=== PATIENT | female | born 1975 | race Caucasian/White ===

== ENCOUNTER 2023-01-09 12:53 | Emergency (ER) | payer OTHER, SELFPAY ==
[2023-01-09] VITALS (7 sets, daily range): BP systolic 111–139; BP diastolic 78–99; PULSE 78–104; RESP 14–17; TEMP 36.4; O2SAT 97–100
--- NOTE | 2023-01-09 13:04 | ECG_ITS ---
Measurements Intervals [place] Rate: 86 P: 52 DC: 146 QRS: 38 QRSD: 110 T: 32 QT: 347 QTc: 416 Interpretive Statements SINUS RHYTHM BASELINE ARTIFACT- II, III, AVF, V5 NORMAL ECG NO PREVIOUS ECG AVAILABLE FOR COMPARISON Electronically Signed On 01-09-2023 13:25:31 CDT by Hamlet Cash D.O.
--- NOTE | 2023-01-09 13:08 | ED.CHESTPAIN ---
HPI - Chest Pain General Chief Complaint: Chest Pain Stated Complaint: chest pain, arm numbness Time Seen by Provider: 01/09/23 13:00 Source: patient Mode of arrival: ambulatory Limitations: no limitations History of Present Illness HPI narrative: 47 year old female presents to the Emergency Department complaining of feeling chest tightness and like she cannot take a deep breath. Having shortness of breath and numbness and tingling in all extremities. Has some chronic paresthesias to left arm and leg. Denies fever, cough, congestion, vomiting, diarrhea. MD complaint: chest pain (tightness) Onset (ago): minute(s) Onset: during rest Pain radiation: none Quality: tightness (like cannot take a deep breath) Relieving factors: nothing Exacerbating factors: nothing Risk Factors Coronary artery disease risk factors: none Thoracic aortic dissection risk factors: none Related Data On Oral Contraceptives: No Allergies Allergy/AdvReac Type Severity Reaction Status Date / Time No Known Allergies Allergy Verified 01/09/23 13:17 Review of Systems Review of Systems: All systems reviewed & are unremarkable except as noted in HPI and below Constitutional: Constitutional: Reports as per HPI Eyes: Eyes: Reports as per HPI ENT: Reports system reviewed and no additional complaints, except as documented Cardiovascular: Cardiovascular: Reports as per HPI and Reports chest pain (tightness like cannot take a deep breath) Respiratory: Respiratory: Reports as per HPI and Reports dyspnea Gastrointestinal: Gastrointestinal: Reports as per HPI, Denies diarrhea, Denies nausea and Denies vomiting Genitourinary: Genitourinary: Reports no additional female genitourinary complaints Musculoskeletal: Musculoskeletal: Reports no additional musculoskeletal complaints Integumentary/Breasts: Skin/Breast: Reports system reviewed and no additional complaints, except as docu Neurologic: Reports system reviewed and no additional complaints, except as documented and Reports numbness (all extremities) Psychiatric: Psychiatric: Reports anxiety Exam Const: General: healthy appearing Nutritional Appearance: well nourished Orientation/consciousness: patient oriented x3 Other: anxious HENMT: Head: normal to inspection Ears: external ears normal Face/Nose/Sinus: Normal external nose present Face and sinus: normal facial exam Mouth: Yes Normal oral and palatal mucosa present Eyes: Conjunctivae: conjunctivae normal Pupils: Equal, round and reactive pupils present EOM: EOMs intact bilaterally Direct Ophthalmoscopy: no photophobia Neck: Neck: normal visual inspection Chest: Chest palpation & inspection: normal inspection of the chest Resp: Effort & Inspection: tachypneic Auscultation: clear to auscultation bilaterally Cardio: Rate: regular rate Rhythm: regular rhythm Heart sounds: no murmurs GI: GI Palp: Yes Soft to palpation and No Tenderness to palpation present (GI) Auscultation: normal bowel sounds Back/Spine/Pelvis: Back: no CVA tenderness Skin: General skin exam: normal color Rashes: no rashes Wounds: no wounds Neuro: General: patient oriented x3, moves all extremities, no meningeal signs, no focal motor deficits and CN's II-XI intact bilaterally Cranial nerves: Yes Nystagmus not present Speech: normal speech Extrem: General: normal to inspection and no clubbing, cyanosis or edema Psych: Affect: Anxious affect present Course Course Emergency Course: 47 y/o female presents to the ED c/o chest tightness, like cannot take a deep breath, shortness of breath, numbness and tingling in extremities. PE: anxious, hyperventilating AB.44/ 82/ 38/ 25, 97% ra EKG: NSR, 86, NAC Tx: IV: saline lock, Ativan 1 mg IVP. [feels better] *reviewed and discussed results, as well as clinical presentation. discussed anxiety, hyperventilation. Patient voices understanding and agreement. Rx and Instructions Vital Signs Vital signs:
[2023-01-09] MEDS: LORazepam INJ (*CRX) 2 MG/ML VIAL 1 MG IV PUSH (13:26)
--- NOTE | 2023-01-09 14:38 | PC.NURSE ---
patient's daughter in room and patient and daughter were having a verbal altercation, patient upset and crying and daughter asked to leave.
[2023-01-09 14:45] LABS: Base Excess ABG 1.3 mmol/L (0-2); HCO3 ABG 25.1 mmol/L (23-29); Oxygen Content ABG 20.1 %vol (16.0-22.0); Oxygen Saturation ABG 96.7 % (95-97); Oxyhemoglobin 95.3 % (94-100); PCO2 ABG 37.6 mmHg (35-45); pH ABG 7.44 (7.35-7.45)
[2023-01-09 14:46] LABS: Device ROOM AIR; Modified Allen's Test Pass; Site Drawn LEFT RADIAL
== END 2023-01-09 15:30 | disposition home or self-care (01) ==
PROVIDERS: Emergency Provider Emergency Medicine
DX: F41.0 Panic disorder [episodic paroxysmal anxiety] (principal); R06.4 Hyperventilation
CPT/HCPCS: 36600; 82805; 93005; 96374; 99284; J2060